=== PATIENT | female | born 1955 | race Caucasian/White ===

== ENCOUNTER → 2018-12-23 | Outpatient (CLI) | payer BC ==
--- NOTE | 2018-12-24 17:10 | BD ---
EXAMINATION TYPE: Axial Bone Density DATE OF EXAM: 12/23/2018 COMPARISON: NONE CLINICAL HISTORY: 63-year-old female disorder of bone and cartilage Height: 5 FT 1 IN Weight: 143 FRAX RISK QUESTIONS: RISK FACTORS HISTORY OF: Active: YES Postmenopausal woman: AGE 50 Take estrogen and/or progesterone medications: TOOK HRT FOR ROUGHLY 5 YEARS MEDICATIONS: Thyroid Medications: YES Which medication: SYNTHROID How Long: AGE 50 Additional Medications: GABAPENTIN, SYNTHROID, VIT D, PREVASTATIN, METFORMIN Additional History: EXAM MEASUREMENTS: Bone mineral densitometry was performed using the [employer] System. Bone mineral density as measured about the Lumbar spine is: ----- L1-L4(G/cm2): 1.041 T Score Values are as follows: ----- L2: -1.6 ----- L3: -0.3 ----- L4: -1.5 ----- L1-L4: -1.2 PREVDONE ELSEWHERE Bone mineral density about the R hip (g/cm2): 0.907 Bone mineral density about the L hip (g/cm2): 0.862 T Score values are as follows: -----R Neck: -0.9 -----L Neck: -1.3 -----R Total: -0.4 -----L Total: -0.9 PREV DONE ELSEWHERE IMPRESSION: Osteopenia (T Score between -2.5 and -1). There is slightly increased risk of fracture and the patient may be considered for treatment. Re-Screen 2-5 years. NOTE: T-SCORE=SD OF THE YOUNG ADULT MEAN.
== END | disposition home or self-care (01) ==
LOC: RADBDWWP 14:51
PROVIDERS: ATTEND Internal Medicine
DX: M85.88 Other specified disorders of bone density and structure, other site (principal)
CPT/HCPCS: 77080

== ENCOUNTER → 2019-10-31 | Outpatient (CLI) | payer BC ==
--- NOTE | 2019-10-31 13:42 | US ---
EXAMINATION TYPE: US pelvis complete transvag DATE OF EXAM: 10/31/2019 COMPARISON: NONE CLINICAL HISTORY: R10.2 Pelvic and perineal pain. Pt states generalized pelvic discomfort TECHNIQUE: Transvaginal (TV) and Transabdominal (TA) . Transabdominal and transvaginal sonographic images of the pelvis were acquired. Date of LMP: Age 52 EXAM MEASUREMENTS: Uterus: 6.5 x 2.7 x 4.5 cm Endometrial Stripe: 0.5 cm Right Ovary: 1.9 x 1.0 x 1.8 cm Left Ovary: 1.2 x 0.7 x 0.9 cm 1. Uterus: Anteverted Heterogeneous 2. Endometrium: Fluid within endo canal 3. Right Ovary: wnl 4. Left Ovary: wnl 5. Bilateral Adnexa: wnl 6. Posterior cul-de-sac: wnl Heterogeneous anteverted uterus. Some fluid in endometrial canal is present. Etiology uncertain. No s uspicious thickening of endometrial stripe on either side of fluid. No free fluid in pelvic cul-de-sa c. Both ovaries seen and are small in size consistent with patient's postmenopausal age. No adnexal mass es are present. IMPRESSION: Fluid within the endometrial canal of uterus of uncertain etiology. Consider cervical st enosis.
== END | disposition home or self-care (01) ==
LOC: RADUSWWP 12:57
PROVIDERS: ATTEND Obstetrics & Gynecology
DX: R10.2 Pelvic and perineal pain (principal)
CPT/HCPCS: 76830; 76856